=== PATIENT | female | born 1950 | race Caucasian/White ===

== ENCOUNTER 2018-08-14 00:18 | Emergency (ER) | payer MEDICARE, BC, SELFPAY ==
[2018-08-14] VITALS (19 sets, daily range): BP systolic 132–176; BP diastolic 62–69; PULSE 68–84; RESP 10–20; TEMP 36.7; O2SAT 94–98
--- NOTE | 2018-08-14 00:23 | DI.CT_ITS ---
SYMPTOM/DIAGNOSIS: CHEST PAIN PE CHEST CT: CT angiography was performed with multi slice acquisition and multi planar and 3D reconstruction. CT scan of the chest was performed according to the pulmonary embolus protocol. There is no evidence of a pulmonary embolus. The thoracic aorta is of normal caliber. No evidence of thoracic aneurysm or dissection. Heart size is within normal limits. No significant pericardial effusion is seen. No findings to suggest right ventricular dysfunction are present. No significant thoracic adenopathy is present. No pleural effusion or pneumothorax is identified. Mild dependent atelectatic changes are seen in the lungs. No focal consolidating infiltrate is seen. The tracheobronchial tree is unremarkable. The thyroid gland is enlarged, right greater than left. It is heterogeneous in density. Portions are obscured due to the artifact from the contrast bolus. Degenerative changes are seen in the spine. IMPRESSION: 1. No evidence of a pulmonary embolus or thoracic aortic dissection or aneurysm. 2. Enlarged thyroid gland. Follow up as clinically appropriate.
--- NOTE | 2018-08-14 00:30 | ED.GENADUL_ITS ---
Discharge Plan Disposition Patient Disposition: HOME Condition: Stable Discharge Details Chief Complaint: Chest Pain Clinical Impression: Chest pain Primary Care Provider: Court Del Real ED Provider: Desean Rincon Home Meds and New Rx's Prescriptions: New cyclobenzaprine 10 mg tablet 10 mg PO TID PRN (Reason: pain) Qty: 20 RF: 0 Continue aspirin [Aspir-81] 81 MG tablet,delayed release (DR/EC) 81 mg PO DAILY RF: 0 furosemide 20 MG tablet 20 mg PO DAILY RF: 0 losartan 100 MG tablet 100 mg PO DAILY RF: 0 potassium chloride 10 MEQ capsule, extended release 10 meq PO DAILY RF: 0 albuterol sulfate [Ventolin HFA] 200 PUFF HFA aerosol inhaler 2 puff Inhalation PRN PRNRF: 0 fluticasone-salmeterol [Advair Diskus] 1 EACH blister with device 1 puff Inhalation BID RF: 0 spironolactone 25 mg Tablet 25 mg PO DAILY RF: 0 atorvastatin [Lipitor] 10 mg Tablet 10 mg PO DAILY RF: 0 febuxostat [Uloric] 40 mg Tablet 40 mg PO DAILY RF: 0 Discharge Instructions Instructions: Chest Pain (ED) Additional Instructions: follow up with your primary care provider this week if you have severe worsening of pain or difficulty breathing return to the emergency department Discharge Data Discharge Physician: Desean Rincon Medical Decision Making 68 yo female with hx of sarcoidosis, who comes in with complaints of left scapular area pain since yesterday and today has had chest pain so came here. She denies diaphoresis, pain with exertion, sob. She has pain with palpation to the left shoulder and left anterior chest so could be musculoskeltal. HEart score is 2 based on age and risk factors, will send troponin. Will also obtian CT to eval for possibe PE vs dissection Pt's labs unremarkable, she feels much better and only has pain when I push on the scapula CT shows no acute findings, she remains well and only has pain when I palpate over the left scapula, no warmth or redness. I suspect musculoskeletal cause of her pain. Given her low heart score and symptoms over 4 hours do not feel second troponin indicated. Will have her f/u with pcp this week and return precautions given Differential Diagnosis chest wall pain, acs, pe, dissection Imaging Data Radiologic Study: Imaging: CT Scan My impression: no acute findings Radiologist's impression: no acute findings, thyroid lesion noted on ct and I informed the pt of this, she states she recently had a biopsy of this and was benign, I informed her to f/u with pcp for further monitoring Lab Data Lab results reviewed: Yes I reviewed the patient's lab results. ECG Data Attestation: I personally reviewed and interpreted this ECG (s) as follows: Prior ECG tracings: not available for review Interpretation: normal sinus rhythm, rate of 82, pr 130, no acute ischemic findings HPI General Mode of arrival: ambulatory . Date/Time Provider Initiated Documentation: 08/14/18 00:18 . Limitations to Documentation: no limitations . Information obtained by: patient . History of Present Illness 68 year old F presents to the emergency department with the chief complaint of left shoulder pain, described as moderate, with intensity rated at 5. Quality is described as aching, and is localized to the upper extremity. Patient reports radiation to (chest). Patient started experiencing this day(s ) (1) and it has been constant. No relieving factors improve symptom(s), No exacerbating factors reported . Patient notes chest pain. Patient did receive the following treatments prior to arrival, NSAID Related Data Home Medications Medication Instructions Recorded Confirmed aspirin [Aspir-81] 81 mg PO DAILY 06/08/13 08/14/18 furosemide 20 mg PO DAILY 06/08/13 08/14/18 losartan 100 mg PO DAILY 06/08/13 08/14/18 albuterol sulfate [Ventolin HFA] 2 puff INHALATION PRN PRN 12/24/14 08/14/18 potassium chloride 10 meq PO DAILY 12/24/14 08/14/18 fluticasone-salmeterol [Advair 1 puff INHALATION BID 04/13/16 08/14/18 Diskus] atorvastatin [Lipitor] 10 mg PO DAILY 08/14/18 08/14/18 cyclobenzaprine 10 mg PO TID PRN #20 tab 08/14/18 febuxostat [Uloric] 40 mg PO DAILY 08/14/18 08/14/18 spironolactone 25 mg PO DAILY 08/14/18 08/14/18 Previous Rx's Medication Instructions Recorded cyclobenzaprine 10 mg PO TID PRN #20 tab 08/14/18 Allergies Allergy/AdvReac Type Severity Reaction Status Date / Time prochlorperazine maleate AdvReac Mild muscle Unverified 08/14/18 00:27 [From Compazine] spasms ciprofloxacin [From Cipro] AdvReac Other (See Unverified 08/14/18 00:27 Comment) General Stated Complaint: Chest Pain SAVI: 2 Review of Systems Review of Systems All systems reviewed & are unremarkable except as noted in HPI and below Constitutional Denies chills, Denies fever(s) and Denies weakness Cardiovascular Reports chest pain and Denies dyspnea Respiratory Denies dyspnea Gastrointestinal Denies abdominal pain, Denies nausea and Denies vomiting Genitourinary Denies dysuria Musculoskeletal Denies joint swelling Integumentary/Breasts Denies rash Neurologic Denies weakness Psychiatric Denies depression Endocrine Denies cold intolerance Allergic/Immunologic Reports urticaria PFSH Social History Smoking/Tobacco Use Status: Never Surgical History Appendectomy (~2006) Breast, Lumpectomy (~06/2011) section (~1976) Cholecystectomy (~1974) Extraction of cataract Ligation of fallopian tube (~1978) Exam Const General: no acute distress Orientation: alert HENMT Head: normal to inspection Ears: external ears normal General nose exam: external nose normal Mouth: moist mucous membranes Eyes General: appearance normal, both eyes and all related structures Neck Neck: normal visual inspection Chest Chest: other (pain with palpation to left anterior superior chest ) Resp Effort & Inspection: normal respiratory effort and able to speak in complete sentences Cardio Rate: regular rate Skin General skin exam: no rashes or lesions noted Neuro General: alert and oriented x3 Extrem General: normal to inspection Psych Mental Status: mental status grossly normal Course Vital Signs Temperature 36.7 C 08/14/18 00:23 Pulse 84 08/14/18 00:23 Respiratory Rate 18 08/14/18 00:23 Blood Pressure 176/62 H 08/14/18 00:23 Pulse Oximetry 96 08/14/18 00:23 Temperature 36.7 C 08/14/18 00:23 Temperature Source Temporal Artery Scan 08/14/18 00:23 Pulse 84 18 00:23 Respiratory Rate 18 18 00:23 Respiratory Effort 08/14/18 00:23 Blood Pressure 176/62 H 08/14/18 00:23 Pulse Oximetry 96 08/14/18 00:23 Oxygen Delivery Method Room Air 08/14/18 00:23 Oxygen Flow Rate 0 08/14/18 00:23 Pain Level 10 08/14/18 00:23
[2018-08-14] MEDS: fentaNYL 100 MCG/2 ML VIAL IVP (00:45)
[2018-08-14 00:51] LABS: Abs Immature Grans 0.01 k/cumm (0.0-0.09); Absolute Basophil Count 0.06 k/cumm (0.0-0.2); Absolute Eosinophil Count 0.48 k/cumm (0.0-0.7); Absolute Lymphocyte Count 2.13 k/cumm (1.2-3.4); Absolute Monocyte Count 0.77 k/cumm (0.11-0.7); Absolute Neutrophil Count 5.67 k/cumm (1.2-6.7); Basophils % 0.7; Eosinophils % 5.3; HCT 37.6 % (36.0-46.0); HGB 12.3 g/dL (12.0-15.5); Immature Grans % 0.1; Lymphocytes % 23.4; Mean Corp. HGB Concentration 32.7 g/dL (32.0-36.0); Mean Corpuscular Hemoglobin 32.2 pg (27.0-33.0); Mean Corpuscular Volume 98.4 fL (80-95); Mean Platelet Volume 9.7 fL (8.0-11.0); Monocytes % 8.4; Neutrophils % 62.1; Platelet Count 280 x1000/uL (130-400); RBC 3.82 m/cumm (4.00-5.20); RBC Distribution Width 13.6 % (11.7-14.6); White Blood Cell Count 9.12 k/cumm (4.4-10.8)
[2018-08-14 01:04] LABS: ALT 24 U/L (12-78); AST 15 U/L (15-37); Albumin 3.6 g/dL (3.4-5.0); Alkaline Phosphatase 145 U/L (46-116); Anion Gap 5.8 mmol/L (3-11); BUN 32 mg/dL (7-18); Bilirubin, Total 0.5 mg/dL (0.2-1.0); CO2 29.2 mmol/L (21.0-32.0); CREATININE 0.93 mg/dL (0.55-1.02); Calcium 8.8 mg/dL (8.5-10.1); Chloride 102 mmol/L (98-107); Estimated GFR 59.95 (mL/min/1.73m2); Glucose 107 mg/dL (70-100); Potassium 4.4 mmol/L (3.5-5.1); Sodium 137 mmol/L (136-145); Total Protein 7.5 g/dL (6.4-8.2)
[2018-08-14 01:05] LABS: Troponin I < 0.02 ng/mL (0.00-0.06)
[2018-08-14 01:15] LABS: PTT Activated 27.2 sec (21.0-31.4); Prothrombin Time 9.4 sec (9.3-10.8)
[2018-08-14] MEDS: Omnipaque 350 MG/ML 100 ML BTL IJ (01:25)
--- NOTE | 2018-08-14 01:51 | DI.VRAD_ITS ---
EXAM: CT Angiography Chest With Intravenous Contrast CLINICAL HISTORY: 68 years old, female; Pain; Chest pain; Type not specified; Prior surgery; Surgery date: 6+ months; Surgery type: Right breast lumpectomy; Patient HX: No recent trauma, HX rt leg dvt 2 years ago, HX sarcoidosis 1983 TECHNIQUE: Axial computed tomographic angiography images of the chest with intravenous contrast using pulmonary embolism protocol. All CT scans at this facility use at least one of these dose optimization techniques: automated exposure control; mA and/or kV adjustment per patient size (includes targeted exams where dose is matched to clinical indication); or iterative reconstruction. MIP reconstructed images were created and reviewed. Coronal and sagittal reformatted images were created and reviewed. CONTRAST: 100 mL of omni 350 administered intravenously. COMPARISON: CR CHEST 2 VIEWS PA,LAT 09/06/2007 8:22 AM FINDINGS: Pulmonary arteries: No pulmonary embolism identified. Aorta: No thoracic aortic aneurysmal dissection. Lungs: Mild symmetric dependent atelectasis. No pulmonary consolidation. Pleural space: No pleural effusion. No pneumothorax. Heart: Normal sized heart. Thyroid: Extensive streak artifact through the thyroid gland. Heterogeneous thyroid gland, enlarged on the right. Central low attenuation bilaterally. Hypoattenuating thyroid lesions? Artifact? Bones/joints: Lower ribs partially excluded from view and incompletely evaluated. Otherwise, no acute fracture seen among the bones of the chest. Soft tissues: Unremarkable. Lymph nodes: No pathologically enlarged mediastinal or hilar lymph nodes. IMPRESSION: 1. No active disease is seen in the chest. 2. Heterogeneous thyroid gland, enlarged on the right but not well evaluated because of extensive streak artifact. Possible hypoattenuating bilateral thyroid lesions versus artifact. Thyroid goiter suggested in a patient of this age although alternatively pathology is not excluded. Dictated and Authenticated by: Ruddy Núñez MD. Ordering:MATHEUS HSIEH MD
[2018-08-14] MEDS: Cyclobenzaprine 10 MG TAB PO (02:08)
== END 2018-08-14 02:17 | disposition home or self-care (01) ==
PROVIDERS: Emergency Provider Emergency Medicine; PCP Family Medicine
DX: R07.9 Chest pain, unspecified (principal); M25.512 Pain in left shoulder; I10 Essential (primary) hypertension
CPT/HCPCS: 71275; 80053; 93005; 96374; 99285; 36410; 83735; 84484; 85025; 85610; 85730; 93010; J3010; J3490

== ENCOUNTER 2021-09-17 22:41 | Outpatient (REF) | payer MEDICARE, BC, SELFPAY ==
[2021-09-19 18:23] LABS: COVID-19 RT-PCR UVMMC Result Negative (Negative)
== END 2021-09-17 22:42 | disposition home or self-care (01) ==
LOC: LBN 22:41
PROVIDERS: Visit Provider Physician Assistant Medical
DX: Z20.822 Contact with and (suspected) exposure to COVID-19 (principal); J06.9 Acute upper respiratory infection, unspecified
CPT/HCPCS: U0003

== ENCOUNTER 2021-12-25 00:12 | Outpatient (CLI) | payer MEDICARE, SELFPAY ==
--- NOTE | 2021-12-25 07:45 | DI.US_ITS ---
Exam(s) US PELVIS TRANSVAGINAL EXAM: US PELVIS TRANSVAGINAL CLINICAL HISTORY: check stripe,postmenopausal bleeding,n95.0. TECHNIQUE: Transabdominal and transvaginal pelvic ultrasound was performed using standard protocol. COMPARISON: No exams were available for comparison FINDINGS: KIDNEYS: Kidneys are symmetric in size. No evidence of renal calculi. No evidence of hydronephrosis. No renal mass or cyst identified. UTERUS: Position: Anteverted. Size: 8.0 long by 4.1 AP by 5.2 transverse cm Endometrium: 0.6 cm. This is mildly thickened in a postmenopausal patient. Myometrium: There is a 1.1 x 1.3 x 1.1 cm partially echogenic mass in the fundus of the uterus likely reflecting a fibroid. There is a 3.5 x 3.2 x 3.4 cm isoechoic mass in the body of the uterus anteri fox likely reflecting a fibroid. Cervix: Unremarkable. OVARIES: The ovaries were not visualized transabdominally or transvaginally. No adnexal masses are s een sonographically. CUL-DE-SAC: Free fluid: None. Other: None. IMPRESSION: 1. Normal sonographic appearance of the kidneys. 2. Endometrial stripe of 0.6 cm. This is thickened in a postmenopausal patient. Please correlate cl inically. 3. The ovaries were not visualized transabdominally or transvaginally. 4. Uterine fibroids. DATA REPOSITORY:
== END 2021-12-25 00:32 ==
PROVIDERS: Visit Provider Obstetrics & Gynecology
DX: N95.0 Postmenopausal bleeding (principal); R93.89 Abnormal findings on diagnostic imaging of other specified body structures; D25.9 Leiomyoma of uterus, unspecified
CPT/HCPCS: 76830; 76856

== ENCOUNTER 2022-01-01 02:04 | Outpatient (CLI) | payer MEDICARE, SELFPAY ==
--- NOTE | 2022-01-01 07:00 | DI.MAMMO_ITS ---
Exam(s) MG MAMMO SCREENING 60 MIN DUR EXAM: MG MAMMO SCREENING 60 MIN DUR CLINICAL HISTORY: breast cancer screening, personal h/o ca,z85.3. TECHNIQUE: Bilateral full field digital CC and MLO mammographic images were obtained with 3D tomosyn thesis and utilizing computer aided detection (CAD). COMPARISON: Prior mammograms were reviewed, the most recent being 2014. Patient underwent prior right breast lumpectomy for malignancy in 2010 FINDINGS: The left cardiac loop detector is noted. There are no new left breast findings. Dystrophic calcifications now evident at the right breast lumpectomy site. This is comprised of benign micro and macro calcifications including multiple fat necrosis benign oil cysts. Small benign-appearing nodule laterally in the right breast is unchanged from prior studies. There is no new significant architectural distortion.. IMPRESSION: No radiographic evidence of malignancy. Right breast lumpectomy site exhibits pole benign dystrophic calcifications which were not evident on the most recent 2014 study. Nevertheless, there are no new significant radiographic findings. BI-RADS Category 2 - Benign Findings Breast Density - Category B - Scattered areas of fibroglandular density Breast density Category C or D implies that the patient has dense breast tissue. Dense breast tissue can make it harder to find cancer on a mammogram. Dense breast tissue is also associated with an incr eased risk of breast cancer. This information about the result of the mammogram report was provided to the patient to raise their awareness. Use this report when you speak with the patient about their risks for breast cancer, which includes their family history. At that time, you may recommend additional screening tests (Ultrasoun d or MRI) as these tests may add significant information. A negative radiographic report should not delay biopsy if a dominant or clinically suspicious mass is present. Up to ten percent of cancers are not identified on mammography. A negative report may reinforce clinical impression. Adenosis and dense breasts may obscure an underlying neoplasm. False positive reports average 6 to 10%. Patient will receive a letter notifying them of these results.
== END 2022-01-01 02:24 ==
PROVIDERS: Visit Provider Obstetrics & Gynecology
DX: Z12.31 Encounter for screening mammogram for malignant neoplasm of breast (principal); Z85.3 Personal history of malignant neoplasm of breast; N64.59 Other signs and symptoms in breast; Z98.890 Other specified postprocedural states; N60.11 Diffuse cystic mastopathy of right breast
CPT/HCPCS: 77063; 77067

== ENCOUNTER 2022-01-12 03:54 | Outpatient (CLI) | payer MEDICARE, SELFPAY | END 2022-01-12 03:55 | disposition home or self-care (01) | PROVIDERS: Visit Provider Obstetrics & Gynecology ==

== ENCOUNTER 2022-04-13 01:21 | Outpatient (CLI) | payer MEDICARE, SELFPAY ==
[2022-04-13 09:24] LABS: Abs Immature Grans 0.02 10^3/uL (0.0-0.06); Absolute Basophil Count 0.07 10^3/uL (0.0-0.2); Absolute Eosinophil Count 0.41 10^3/uL (0.0-0.7); Absolute Lymphocyte Count 1.48 10^3/uL (1.2-3.4); Absolute Monocyte Count 0.84 10^3/uL (0.1-0.8); Absolute Neutrophil Count 5.49 10^3/uL (1.2-6.7); Basophils % 0.8; Eosinophils % 4.9; HCT 36.7 % (36.0-46.0); HGB 11.8 g/dL (11.2-15.7); Immature Grans % 0.2; Lymphocytes % 17.8; MCHC 32.2 % (32.0-36.0); MCV 96 fL (80-95); MPV 9.6 fL (8.0-11.0); Monocytes % 10.1; Neutrophils % 66.2; Platelet Count 253 10^3/uL (130-400); RBC 3.81 10^6/uL (3.93-5.22); RDW 13.1 % (11.7-14.6); RDW-SD 46.3 fL; WBC 8.31 10^3/uL (4.4-10.8)
== END 2022-04-13 01:22 | disposition home or self-care (01) ==
LOC: LBO 01:22
PROVIDERS: Visit Provider Obstetrics & Gynecology
DX: N95.0 Postmenopausal bleeding (principal); N85.6 Intrauterine synechiae; Z01.818 Encounter for other preprocedural examination; Z01.812 Encounter for preprocedural laboratory examination
CPT/HCPCS: 36415; 86850; 86900; 86901; 85025

== ENCOUNTER 2022-04-13 01:54 | Outpatient (CLI) | payer MEDICARE, SELFPAY ==
[2022-04-13 10:13] LABS: Source Nasal/Nares
[2022-04-13 15:32] LABS: COVID-19 PCR Negative (Negative)
== END 2022-04-13 01:55 | disposition home or self-care (01) ==
LOC: LBO 01:54
PROVIDERS: Visit Provider Obstetrics & Gynecology
DX: Z20.822 Contact with and (suspected) exposure to COVID-19 (principal); Z01.818 Encounter for other preprocedural examination
CPT/HCPCS: 87635

== ENCOUNTER 2022-04-14 10:28 | Day surgery (SDC) | payer MEDICARE, SELFPAY ==
[2022-04-14] VITALS (8 sets, daily range): BP systolic 80–143; BP diastolic 48–73; PULSE 54–68; RESP 13–17; TEMP 36.3–36.7; O2SAT 97–100; BMI 43.4
[2022-04-14] MEDS: Lactated Ringers 1,000 ML 125 ML IV (11:23)
--- NOTE | 2022-04-14 11:40 | ANES.PREOP_ITS ---
General Info Date of Service Date Performed: 04/14/22 Height: 5 ft 4 in Weight: 114.8 kg Body Mass Index (BMI): 43.4 Surgical Procedure: Operation Date: 04/14/22 12:25 Proposed Procedure Side Surgeon p Dilation & Curettage with Hysteroscopy Jerilyn Gibson DO Meds Allergies and Home Medications Allergies Allergy/AdvReac Type Severity Reaction Status Date / Time prochlorperazine maleate AdvReac Mild muscle Unverified 04/14/22 10:47 [From Compazine] spasms ciprofloxacin [From Cipro] AdvReac Other (See Unverified 04/14/22 10:47 Comment) Home Medication Medication Instructions Recorded aspirin 81 mg tablet,delayed 81 mg PO DAILY 06/08/13 release (Aspir-) furosemide 20 mg tablet 20 mg PO DAILY 06/08/13 albuterol sulfate 90 mcg/actuation 2 puff inhalation PRN PRN 12/24/14 aerosol inhaler (Ventolin HFA) spironolactone 25 mg tablet 25 mg PO DAILY 08/14/18 clopidogrel 75 mg tablet 150 mg PO DAILY 01/11/22 rivaroxaban 20 mg tablet (Xarelto) 20 mg PO DAILY 01/11/22 atorvastatin 40 mg tablet (Lipitor) 40 mg PO QHS 04/12/22 mxmygovq-nmohprgh-zbgh 45 mg-folic 2 cap PO BID 04/12/22 acid 800 mcg-vit K 120 mcg capsule (Bariatric Multivitamins) valsartan 160 mg tablet 160 mg PO HS 04/12/22 Current Visit Medications: Current Medications Generic Name Dose Route Start Last Admin Trade Name Freq PRN Reason Stop Dose Admin Ringer's Solution 1,000 mls @ 125 mls/hr 04/14/22 06:00 04/14/22 11:23 IV 05/13/22 23:59 125 mls/hr INFUSION TENISHA Administration IV Miscellaneous Supplies 1 each 04/14/22 06:00 Iv Access IV 05/13/22 23:59 DIRECTED TENISHA Sodium Chloride 0 ml 04/14/22 06:00 Normal Saline Flush 10 Ml Syr IV 05/13/22 23:59 PRN PRN Sodium Chloride 0 ml 04/14/22 06:00 Normal Saline 10 Ml Vial IJ 05/13/22 23:59 DIRECTED PRN Sterile Water 0 ml 04/14/22 06:00 Water,Injection,Sterile 10 Ml Vial IJ 05/13/22 23:59 DIRECTED PRN PFSH Active Problems Active Problems: Problem Status Onset Code Postmenopausal bleeding N95.0 HX: breast cancer Z85.3 Medical History Medical History GOVEA (dyspnea on exertion) History of cardiac monitoring internal heart monitor Hypertension Pulmonary HTN PVC's (premature ventricular contractions) Per 2019 note, very frequent PCS's s/p study and ablation Sarcoidosis TIA (transient ischemic attack) 04/2020 Last f/u with cardiology Medical History Comments:: Pt. states they put a rubber guard in my mouth and i was told i stopped breathing, and they brought me right back out it. But I have had anesthesia since then with no problems Per patient has an implant in chest that is monitoring her heart rate. Surgical History Surgical History Appendectomy (~2006) Breast, Lumpectomy (~06/2011) right section (~1976) Cholecystectomy (~1974) Extraction of cataract B/L History of cardiac radiofrequency ablation Per note for PVc's History of hysteroscopy History of implanted electronic device Per patient implanted repossession agent. [employer] device. Hx of bariatric surgery 2019 Hx of cardiac cath 2012 nper note 2019 negative for significant CAD Ligation of fallopian tube (~1978) Tobacco Smoking/Tobacco Use Status: Never Alcohol Alcohol Intake: never Substance Use Substance use: Never Substance use type: does not use Vital Signs and Lab Results Vital Signs Most Recent Vital Signs in EMR: Most Recent Vital Signs Temp Pulse Resp BP Pulse Ox 36.7 C 59 L 17 120/73 97 04/14/22 11:06 04/14/22 11:06 04/14/22 11:06 04/14/22 11:06 04/14/22 11:06 Lab Results Blood Type / Crossmatch: Patient ABO/Rh O Positive 04/13/22 Antibody Screen NEGATIVE 04/13/22 Complete Blood Count: White Blood Count 8.31 10^3/uL (4.4-10.8) 04/13/22 09:15 Red Blood Count 3.81 10^6/uL (3.93-5.22) L 04/13/22 09:15 Hemoglobin 11.8 g/dL (11.2-15.7) 04/13/22 09:15 Hematocrit 36.7 % (36.0-46.0) 04/13/22 09:15 Platelet Count 253 10^3/uL (130-400) 04/13/22 09:15 Complete Metabolic Panel: No Data to Display Liver Function Panel: No Data to Display Coagulation Panel: No Data to Display Cardiac Panel: No Data to Display Arterial Blood Gas: No Data to Display Venous Blood Gas: No Data to Display Pancreas Panel: No Data to Display Thyroid Panel: No Data to Display Infectious Disease: Coronavirus (COVID-19)(PCR) Negative (Negative) 04/13/22 09:45 Coronavirus 2019 Source Nasal/Nares 04/13/22 09:45 Blood Cultures: No Data to Display Toxicology Panel: No Data to Display Imaging and Studies Imaging and Studies Study information below may be from another EMR and interpreted by another provider. Please see original notes in EMR for more complete details. Echocardiogram Summary: 04/2020: EF normal, normal valves. Carotid Artery Summary:: Patient states in 2019 saw neurology and had carotid scan which was normal. Anesthesia Assessment and Plan Anesthesia History Personal History: No History of Anesthesia Complications Family History: No Family History of Anesthesia Complications Exercise Tolerance Exercise Tolerance: Metabolic Equivalents>4 Pertinent Negatives Pertinent Negatives: No Symptoms of GERD and No Major Pulmonary Symptoms or Complaints Cardiac & Pulmonary Exam Cardiac Exam: Normal S1/S2 Heart Sounds Pulmonary Exam: Clear Bilateral Breath Sounds Implantable Cardiac Device Does patient have a Pacemaker or an ICD?: No Airway Exam Known Difficult Airway: No Mallampati Class: 2 Mouth Opening: Normal (> 3cm) Thyromental Distance: Less than 3 cm Neck Range of Motion: Full ROM Neck Circumference: Normal Teeth Condition: Normal Dentition and Other (Partial upper and lower) ASA Classification ASA Score: ASA 3 Emergency Case?: No NPO Status NPO Status: NPO Clears >2 hours, Solids >8 hours Anesthesia Plan Resuscitation Status: Full Code Anesthesia Technique: General Anesthesia Airway Planned: LMA Monitors Used: Standard Monitors
--- NOTE | 2022-04-14 13:20 | ENDO_PTH ---
PATIENT: Madyson Jones LOC: [facility] U#:[id number] AGE/SX: 72/F ROOM: RE04/14/[address]: Jerilyn Gibson DO : 1950 BED: DIS: 04/14/2022 SPEC #: [id number] RECD: 04/14/22 17:33 STATUS: SOUT REQ #: [id number] DEL: 04/14/22 13:[address]: Jerilyn Gibson DEPT: Surgical Specimen RECD BY: Maday Rogel ENTERED: 04/14/22 17:35 SP TYPE: Endo OTHR DR: Unknown,Unknown Tissues: 1 - ENDOCERVICAL BX/CURRETTE 2 - ENDOMETRIUM BX/CURRETTE Procedures: GROSS AND MICRO LEVEL 4 Comments: [id number]
--- NOTE | 2022-04-14 13:33 | W.PM.OP ---
Date of service: 04/14/22 Time of Service: 13:33 Operative Note Operative Note DATE OF PROCEDURE: 04/14/22 PRE-OP DIAGNOSIS: Postmenopausal bleeding POST-OP DIAGNOSIS: same PROCEDURE: Hysteroscopy with dilation and curettage SURGEON: Jerilyn Gibson ANESTHESIA TYPE: General LMA/ETT Refer to Anesthesia Record ESTIMATED BLOOD LOSS: 10 PATHOLOGY: other (1. Endocervical curettage 2. Endometrial curettage) COMPLICATIONS: None Patient was transported to: PACU Patient's condition: stable Indications: Postmenopausal bleeding, thickened endometrium Findings: Normal-appearing endometrial cavity with intrauterine synechiae. No fibroids or polyps noted Procedure Description: Patient is a 70-year-old female with an episode of postmenopausal bleeding. Recommendation was for hysteroscopy with dilation curettage due to thickened endometrium. The risk benefits and alternatives have been explained to the patient and full informed consent was obtained. She was taken the operating suite with an IV running where she is placed in the supine position and general anesthesia administered via LMA. She was then placed in the modified dorsal lithotomy position with compression stockings in place and prepped and draped in the usual sterile fashion. She had bladder drainage for approximately 200 cc of clear yellow urine. Exam under anesthesia revealed a uterus that is midline and mobile. Speculum was inserted and cervical os identified. Single-tooth tenaculum was used to grasp the anterior lip of the cervix and cervical os dilated to point that a 5 mm hysteroscope could be passed with ease. With instillation of normal saline and a total of 100 cc deficit, the entire endometrial cavity was inspected. The cavity overall was smooth and somewhat atrophic appearing with a small amount of intrauterine synechiae particularly at the left cornua. There was no evidence of polyp or fibroid appreciated. At completion of the hysteroscope portion, dilation and curettage was performed. First a gentle sharp curettage of the endocervical canal was performed followed by a gentle sharp curettage of the endometrial canal. Tissue was sent for pathologic examination. This point the procedure was terminated. Tenaculum and speculum were both removed. Puncture sites from the tenaculum were hemostatic. Patient was returned to the dorsal supine position and awoke from anesthesia with ease. Fluid deficit was noted to be 170 cc, however during the procedure there was a disconnection of the input fluid tubing which would account for approximately 50 to 100 cc of normal saline unaccounted. Patient awoke from anesthesia and was taken to the postanesthesia care unit in stable condition. Complications: None apparent EBL: 10 mL Pathology: 1. Endocervical curettage 2. Endometrial curettage. Fluids: Crystalloid per anesthesia.
--- NOTE | 2022-04-14 14:16 | W.ANESPOSTOP ---
Postoperative Evaluation Date, Time and Location Date Performed: 04/14/22 Time Performed: 14:16 Patient Location: Day Surgery Unit Vital Signs Most Recent Imported Vital Signs: Most Recent Vital Signs Temp Pulse Resp BP Pulse Ox 36.5 C 54 L 15 139/48 L 97 04/14/22 14:10 04/14/22 14:10 04/14/22 14:10 04/14/22 14:10 04/14/22 14:10 Pain Score Most Recent Pain Score: Most Recent Pain Score Pain Level 0 04/14/22 14:10 Assessment Mental Status: Awake (Alert & Oriented to Patient Baseline) Airway and Respiratory Function: Patent airway with normal (patient baseline) respiratory exam Cardiovascular Function: Hemodynamically Stable Hydration Status: Adequately Hydrated Nausea & Vomiting: No Nausea or Vomiting Pain: Pt. Denies Any Pain Peripheral Nerve Block: Patient did not receive a nerve block
== END 2022-04-14 15:35 | disposition home or self-care (01) ==
PROVIDERS: Visit Provider Obstetrics & Gynecology
PROC: 0UDB8ZZ Extraction of Endometrium, Via Natural or Artificial Opening Endoscopic (ICD-10-PCS; CPT 58558; principal; 2022-04-14 12:15)
DX: N95.0 Postmenopausal bleeding (principal); R93.89 Abnormal findings on diagnostic imaging of other specified body structures; N85.6 Intrauterine synechiae; D26.0 Other benign neoplasm of cervix uteri
CPT/HCPCS: 58558; 88305; J1100; J2405

== ENCOUNTER 2023-12-15 16:43 | Outpatient (CLI) | payer MEDICARE, SELFPAY ==
[2023-12-15 17:58] LABS: D-Dimer 323 ng/mlFEU (<500)
== END 2023-12-15 16:44 | disposition home or self-care (01) ==
LOC: LBO 16:43
PROVIDERS: Visit Provider Nurse Practitioner Family
DX: M79.661 Pain in right lower leg (principal)
CPT/HCPCS: 36415; 85379